=== PATIENT | male | born 1975 | race Caucasian/White ===

== ENCOUNTER 2023-03-11 20:51 | Emergency (ER) | payer MEDICAID ==
[~2023-03-11] VITALS: Ht 177.8 cm; Wt 104.3 kg
[2023-03-11 20:57] VITALS: BP_SYST 140; PULSE 74; RESP 16; TEMP 97.6; O2SAT 99
[2023-03-11] MEDS ORDERED: DIPHENHYDRAMINE INJ 50 MG/ML VIAL IM ONE (21:15)
[2023-03-11] MEDS ORDERED: FAMOTIDINE 20 MG TABLET PO ONE (21:15)
[2023-03-11] MEDS ORDERED: predniSONE 20 MG TABLET PO ONE (21:15)
[2023-03-11] MEDS ORDERED: PRED20TA PO (21:56)
[2023-03-11] MEDS ORDERED: EPIN0.3P3 IM (21:56)
[2023-03-11] MEDS ORDERED: FAMO-132 PO (21:56)
[2023-03-11] MEDS ORDERED: DIPH25CA83 PO (21:56)
[2023-03-11 22:20] VITALS: BP_SYST 107; PULSE 60; RESP 20; TEMP 97.6; O2SAT 98
== END 2023-03-11 22:19 | disposition home or self-care (01) ==
LOC: SED 20:51
DX: T78.02XA Anaphylactic reaction due to shellfish (crustaceans), initial encounter (principal); R20.2 Paresthesia of skin; I10 Essential (primary) hypertension; Z91.013 Allergy to seafood; Z79.899 Other long term (current) drug therapy
CPT/HCPCS: 99283; 96372; J7512; J1200